=== PATIENT | female | born 1990 | race Two or more races ===

== ENCOUNTER 2022-08-13 02:13 | Emergency (ER) | payer OTHER ==
[~2022-08-13] VITALS: Ht 167.6 cm; Wt 117.9 kg
[2022-08-13] MEDS ORDERED: DOLOGESIC 500-1 EACH PO (06:14)
[2022-08-13] MEDS ORDERED: PHENAGIL TABLE1 EACH PO (06:14)
[2022-08-13] MEDS ORDERED: ZYNCOF 20-400120 ML PO (06:14)
== END 2022-08-13 06:43 ==
LOC: ER 02:13
DX: U07.1 COVID-19 (principal)